=== PATIENT | male | born 1995 | race Caucasian/White ===

== ENCOUNTER 2017-04-03 04:13 | Emergency (ER) | payer OTHER ==
[~2017-04-03] VITALS: Ht 185.4 cm; Wt 63.5 kg
[2017-04-03] MEDS ORDERED: HYDROCODONE-AP1 EAC6 PO (04:29)
== END 2017-04-03 05:13 | disposition home or self-care (01) ==
LOC: ER 04:13
DX: Z47.89 Encounter for other orthopedic aftercare (principal)